=== PATIENT | female | born 1990 | race Caucasian/White ===

== ENCOUNTER 2018-03-12 21:51 | Emergency (ER) | payer SELFPAY ==
[2018-03-12] MEDS ORDERED: HALOPERIDOL LACTATE INJ 5 MG/1 ML VIAL IV ONE (22:21)
[2018-03-12] MEDS ORDERED: NORMAL SALINE 1000 ML 1,000 ML IV ONE (22:21)
--- NOTE | 2018-03-12 22:22 | ER Document Report ---
ED General - General Chief Complaint: Flu Symptoms Stated Complaint: NAUSEA/VOMITING Time Seen by Provider: 03/12/18 22:20 Notes: Patient is a 28-year-old female without chronic medical problems who presents with multiple complaints. She complains of 24 hours of a headache, nausea, abdominal cramping, lightheadedness, and fatigue. Symptoms have been worsening since onset. She states that she has been dry heaving and has therefore not had of the any oral intake today. She states she has a history of similar symptoms in the past but is uncertain of the cause. Nothing seemed to improve or worsen her symptoms. She has not seen her primary doctor regarding today's concerns. She denies any fever, dysuria, weakness, numbness, cough or surface of breath. No known sick contacts. TRAVEL OUTSIDE OF THE [place] IN LAST 30 DAYS: No - Related Data Allergies/Adverse Reactions: ibuprofen [From Motrin] Allergy (Verified 03/12/18 21:54) iodine Allergy (Verified 03/12/18 21:54) latex Allergy (Verified 03/12/18 21:54) ondansetron [From Zofran] Allergy (Verified 03/12/18 21:54) promethazine [From Phenergan] Allergy (Verified 03/12/18 21:54) sertraline [From Zoloft] Allergy (Verified 03/12/18 21:54) shellfish derived Allergy (Verified 03/12/18 21:54) Tetanus Vaccines and Toxoid Allergy (Verified 03/12/18 21:54) bee stings Allergy (Uncoded 03/12/18 21:54) Past Medical History - General Information source: Patient - Social History Smoking Status: Never Smoker Frequency of alcohol use: None Drug Abuse: None Lives with: Spouse/Significant other Family History: Reviewed & Not Pertinent Patient has suicidal ideation: No Patient has homicidal ideation: No Renal/ Medical History: Denies: Hx Peritoneal Dialysis Review of Systems - Review of Systems Notes: Constitutional: Negative for fever. Positive for myalgias HENT: Negative for sore throat. Eyes: Negative for visual changes. Cardiovascular: Negative for chest pain. Respiratory: Negative for shortness of breath. Gastrointestinal: Positive for abdominal cramping and nausea Genitourinary: Negative for dysuria. Musculoskeletal: Negative for back pain. Skin: Negative for rash. Neurological: Positive for headache 10 point ROS negative except as marked above and in HPI. Physical Exam - Vital signs Vitals: Temp Pulse Resp BP Pulse Ox 98.7 F 88 16 115/60 99 03/12/18 21:59 03/12/18 21:59 03/12/18 21:59 03/12/18 21:59 03/12/18 21:59 Interpretation: Normal Notes: PHYSICAL EXAMINATION: GENERAL: Well-appearing, well-nourished and in no acute distress. HEAD: Atraumatic, normocephalic. EYES: Pupils equal round and reactive to light, extraocular movements intact, sclera anicteric, conjunctiva are normal. ENT: nares patent, oropharynx clear without exudates. Moist mucous membranes. NECK: Normal range of motion, supple without lymphadenopathy LUNGS: Breath sounds clear to auscultation bilaterally and equal. No wheezes rales or rhonchi. HEART: Regular rate and rhythm without murmurs ABDOMEN: Soft, nontender, normoactive bowel sounds. No guarding, no rebound. No masses appreciated. EXTREMITIES: Normal range of motion, no pitting or edema. No cyanosis. NEUROLOGICAL: No focal neurological deficits. Moves all extremities spontaneously and on command. PSYCH: Somewhat anxious but in no acute distress SKIN: Warm, Dry, normal turgor, no rashes or lesions noted. Course - Re-evaluation Re-evalutation: 03/12/18 22:47 Patient presents with multiple vague complaints that did not appear to be concerning for any acute life-threatening pathology. Vitals are within normal limits at triage and at time of discharge. Physical examination is unremarkable. Patient has tolerated oral intake without difficulty. Patient was not noted to be in distress at any point during their ER visit. At this time, based on the reassuring evaluation, I do not suspect an acute OK, pulmonary embolus, aortic dissection, acute intra-abdominal pathology, stroke, or sepsis.Will discharge with return precautions and follow-up recommendations. Verbal discharge instructions given a the bedside and opportunity for questions given. Medication warnings reviewed. Patient is in agreement with this plan and has verbalized understanding of return precautions and the need for primary care follow-up in the next 24-72 hours. - Vital Signs Vital signs: Temp Pulse Resp BP Pulse Ox 99.1 F 89 12 114/65 98 03/13/18 01:07 03/13/18 01:07 03/13/18 01:07 03/13/18 01:07 03/13/18 01:07 - Laboratory Result Diagrams: 03/12/18 22:54 03/12/18 22:54 Laboratory results interpreted by me: 03/12/18 22:54 WBC 12.0 H Absolute Neutrophils 9.0 H Discharge - Discharge Clinical Impression: Multiple complaints, Body aches Headache Qualifiers: Headache type: unspecified Headache chronicity pattern: acute headache Intractability: not intractable Qualified Code(s): R51 - Headache Nausea and vomiting Qualifiers: Vomiting type: unspecified Vomiting Intractability: non-intractable Qualified Code(s): R11.2 - Nausea with vomiting, unspecified Condition: Good Disposition: HOME, SELF-CARE Additional Instructions: Please return to the emergency room immediately if you experience any concerning symptoms including high fevers, severe headache, chest pain, difficulty breathing, abdominal pain, slurred speech, numbness or weakness in your arms or legs, or any other symptom that concerns you.
[2018-03-12 23:05] LABS: ABSOLUTE EOSINOPHILS # (AUTO) 0.1 10^3/uL (0.0-0.6); ABSOLUTE LYMPHOCYTES (AUTO) 1.9 10^3/uL (0.5-4.7); ABSOLUTE MONOCYTES (AUTO) 0.9 10^3/uL (0.1-1.4); BASOPHILS % (AUTO) 0.3 % (0-2); EOSINOPHILS % (AUTO) 0.6 % (0-6); HEMOGLOBIN 13.2 g/dL (12.0-15.5); MEAN CORPUSCULAR HEMOGLOBIN 31.8 pg (27.0-33.4); MEAN CORPUSCULAR HGB CONC 34.8 g/dL (32.0-36.0); MEAN CORPUSCULAR VOLUME 92 fl (80-97); MONOCYTES % (AUTO) 7.6 % (3-13); PLATELET COUNT 381 10^3/uL (150-450); RED BLOOD COUNT 4.15 10^6/uL (3.72-5.28); RED CELL DISTRIBUTION WIDTH 13.6 % (11.5-14.0); SEGMENTED NEUTROPHILS % (AUTO) 75.5 % (42-78); TOTAL CELLS COUNTED % (AUTO) 100 %
[2018-03-12 23:23] LABS: ALANINE AMINOTRANSFERASE 25 U/L (9-52); ALBUMIN 4.6 g/dL (3.5-5.0); ALKALINE PHOSPHATASE 61 U/L (38-126); ANION GAP 13 (5-19); ASPARTATE AMINO TRANSFERASE 21 U/L (14-36); BILIRUBIN,DIRECT 0.3 mg/dL (0.0-0.4); BILIRUBIN,TOTAL 0.6 mg/dL (0.2-1.3); BLOOD UREA NITROGEN 7 mg/dL (7-20); CALCIUM 10.2 mg/dL (8.4-10.2); CARBON DIOXIDE 24 mmol/L (22-30); CHLORIDE 104 mmol/L (98-107); GLUCOSE 87 mg/dL (75-110); LIPASE 66.7 U/L (23-300); POTASSIUM 4.2 mmol/L (3.6-5.0); SODIUM 140.5 mmol/L (137-145); TOTAL PROTEIN 7.4 g/dL (6.3-8.2)
[2018-03-13 00:03] LABS: APPEARANCE,URINE CLEAR; BILIRUBIN,URINE NEGATIVE (NEGATIVE); COLOR,URINE COLORLESS; GLUCOSE, URINE NEGATIVE (NEGATIVE); KETONES,URINE NEGATIVE (NEGATIVE); LEUKOCYTE ESTERASE,URINE NEGATIVE (NEGATIVE); NITRITE,URINE NEGATIVE (NEGATIVE); PROTEIN,URINE NEGATIVE (NEGATIVE); URINE SPECIFIC GRAVITY 1.003; UROBILINOGEN,URINE NEGATIVE mg/dL (<2.0)
[2018-03-13 01:11] VITALS: BP 114/65
== END 2018-03-13 01:11 | disposition home or self-care (01) ==
LOC: ER 21:51
DX: R11.2 Nausea with vomiting, unspecified (principal); R51 Headache; R10.9 Unspecified abdominal pain; R42 Dizziness and giddiness; R53.83 Other fatigue; Z88.6 Allergy status to analgesic agent; Z91.040 Latex allergy status; Z88.8 Allergy status to other drugs, medicaments and biological substances; Z91.013 Allergy to seafood; Z88.7 Allergy status to serum and vaccine; Z91.030 Bee allergy status
CPT/HCPCS: 99284; 96361; 96374; 36415; 83690; 84703; 85025; 80053; 81001; J1630; J7030

== ENCOUNTER 2018-03-13 20:41 | Emergency (ER) | payer SELFPAY ==
[2018-03-13] MEDS ORDERED: DIPHENHYDRAMINE HCL 50 MG CAPSULE PO ONE (22:14)
--- NOTE | 2018-03-13 23:19 | ER Document Report ---
ED General - General Chief Complaint: Other Stated Complaint: MOUTH SWELLING Time Seen by Provider: 03/13/18 21:51 TRAVEL OUTSIDE OF THE [place] IN LAST 30 DAYS: No - HPI Notes: Patient is a 28-year-old female seen yesterday with nausea and vomiting and diarrhea that was given Haldol and reports that after the Haldol the nausea and vomiting seemed to subside, but she developed what she described as a thick tongue sensation with some difficulty talking thereafter. The patient denies any muscle twitches. She reports no abdominal pain, chest pain, difficulty breathing, fever, chills. The patient reports no headache or neck pain. - Related Data Allergies/Adverse Reactions: ibuprofen [From Motrin] Allergy (Verified 03/13/18 21:21) iodine Allergy (Verified 03/13/18 21:21) latex Allergy (Verified 03/13/18 21:21) ondansetron [From Zofran] Allergy (Verified 03/13/18 21:21) promethazine [From Phenergan] Allergy (Verified 03/13/18 21:21) sertraline [From Zoloft] Allergy (Verified 03/13/18 21:21) shellfish derived Allergy (Verified 03/13/18 21:21) Tetanus Vaccines and Toxoid Allergy (Verified 03/13/18 21:21) bee stings Allergy (Uncoded 03/13/18 21:21) Past Medical History - General Information source: Patient - Social History Smoking Status: Unknown if Ever Smoked Frequency of alcohol use: None Drug Abuse: None Lives with: Family Family History: Reviewed & Not Pertinent Patient has suicidal ideation: No Patient has homicidal ideation: No Renal/ Medical History: Denies: Hx Peritoneal Dialysis Review of Systems - Review of Systems Notes: REVIEW OF SYSTEMS: CONSTITUTIONAL : Denies fever, chills, or sweats. Denies recent illness. EENT: Denies eye, ear symptoms. Denies nasal or sinus congestion or discharge. Denies facial twitching. Reports mild pharyngitis. CARDIOVASCULAR: Denies chest pain. Denies palpitations or racing or irregular heart beat. Denies ankle edema. RESPIRATORY: Denies cough, cold, or chest congestion. Denies shortness of breath, difficulty breathing, or wheezing. GASTROINTESTINAL: Denies abdominal pain or distention. Denies nausea, vomiting , or diarrhea. Denies blood in vomitus, stools, or per rectum. Denies black, tarry stools. Denies constipation. GENITOURINARY: Denies difficulty urinating, painful urination, burning, frequency, blood in urine, or discharge. FEMALE GENITOURINARY: Denies vaginal bleeding, heavy or abnormal periods, irregular periods. Denies vaginal discharge or odor. MUSCULOSKELETAL: Denies back or neck pain or stiffness. Denies joint pain or swelling. SKIN: Denies rash, lesions or sores. HEMATOLOGIC : Denies easy bruising or bleeding. LYMPHATIC: Denies swollen, enlarged glands. NEUROLOGICAL: Denies confusion or altered mental status. Denies passing out or loss of consciousness. Denies dizziness or lightheadedness. Denies headache. Denies weakness or paralysis or loss of use of either side. Denies problems with gait. Denies sensory loss, numbness, or tingling. Denies seizures. PSYCHIATRIC: Denies anxiety or stress. Denies depression, suicidal ideation, or homicidal ideation. ALL OTHER SYSTEMS REVIEWED AND NEGATIVE. Dictation was performed using [employer] voice recognition software Physical Exam - Vital signs Vitals: Temp Pulse Resp BP Pulse Ox 98.9 F 101 H 18 118/61 100 03/13/18 20:58 03/13/18 20:58 03/13/18 20:58 03/13/18 20:58 03/13/18 20:58 - Notes Notes: PHYSICAL EXAMINATION: GENERAL: Well-appearing, well-nourished and in no acute distress. HEAD: Atraumatic, normocephalic. EYES: Pupils equal round and reactive to light, extraocular movements intact, conjunctiva are normal. ENT: Nares patent. Moist mucous membranes. Tongue size appears normal but she does appear to have slight trouble with talking and moving her tongue. Minimal tonsillar exudate, but no erythema. This fits more so with food particles in the tonsils. NECK: Normal range of motion, supple without lymphadenopathy LUNGS: Breath sounds clear to auscultation bilaterally and equal. No wheezes rales or rhonchi. HEART: Regular rate and rhythm without murmurs ABDOMEN: Soft, nontender, nondistended abdomen. No guarding, no rebound. No masses appreciated. Female : deferred Musculoskeletal: Normal range of motion, no pitting or edema. No cyanosis. NEUROLOGICAL: Cranial nerves grossly intact. normal gait. Normal sensory, motor exams. Somewhat slurred speech. PSYCH: Normal mood, normal affect. SKIN: Warm, Dry, normal turgor, no rashes or lesions noted. Course - Re-evaluation Re-evalutation: 03/13/18 23:19 Strep test was negative. After the patient was given Benadryl, she had a complete resolution of her difficulty with talking. Findings fit for a dystonic reaction related to Haldol. - Vital Signs Vital signs: Temp Pulse Resp BP Pulse Ox 98.9 F 101 H 18 118/61 100 03/13/18 20:58 03/13/18 20:58 03/13/18 20:58 03/13/18 20:58 03/13/18 20:58 Discharge - Discharge Clinical Impression: Dystonic drug reaction Condition: Stable Disposition: HOME, SELF-CARE Instructions: Dystonic Reaction to Medication (OM), Family Physicians / Practices Additional Instructions: You have had a dystonic medication reaction to Haldol. Based upon this finding , you are allergic to Haldol, also known as haloperidol. Take Benadryl 25 mg up to 50 mg every 4 hours as needed for any further dystonic medication reaction.
[2018-03-13 23:39] VITALS: BP 109/69
== END 2018-03-13 23:28 | disposition home or self-care (01) ==
LOC: ER 20:41
DX: G24.02 Drug induced acute dystonia (principal); R22.0 Localized swelling, mass and lump, head; R11.2 Nausea with vomiting, unspecified; R19.7 Diarrhea, unspecified
CPT/HCPCS: 87070; 87880; 99283